=== PATIENT | female | born 1985 | race Two or more races ===

== ENCOUNTER 2016-08-05 17:54 | Emergency (ER) | payer BC ==
[~2016-08-05 17:54] MED LIST: ATIVAN1 MG PO; NO HOME MEDS; ZOLOFT100 MG PO
[2016-08-05] MEDS ORDERED: WELLBUTRIN SR150 M2 PO (18:03)
[2016-08-05] MEDS ORDERED: KLONOPIN1 M1 PO (18:03)
[2016-08-05 19:21] LABS: URINE BILIRUBIN NEGATIVE (NEG); URINE BLOOD SMALL (NEG); URINE GLUCOSE (UA) NEGATIVE (NEG); URINE KETONE NEGATIVE (NEG); URINE LEUKOCYTE ESTERASE NEGATIVE (NEG); URINE NITRITE NEGATIVE (NEG); URINE PROTEIN MODERATE (NEG)
[2016-08-05 19:22] LABS: URINE APPEARANCE CLEAR; URINE COLOR YELLOW
[2016-08-05 19:28] LABS: URINE AMORPHOUS 1+; URINE EPITHELIAL CELLS 0-1 /[HPF] (0-10); URINE RBC 0-2 /[HPF] (0-5); URINE WBC 0-1 /[HPF] (0-5)
[2016-08-05 19:36] LABS: ANION GAP 14 mmol/L (0-20); BLOOD UREA NITROGEN 8 mg/dl (6-24); CALCIUM 8.3 mg/dl (8.5-10.5); CARBON DIOXIDE-VENOUS 23 mmol/L (22-32); CHLORIDE 105 mmol/l (96-110); CREATININE 0.81 mg/dl (0.50-1.10); GLUCOSE 93 mg/dL (70-110); POTASSIUM 3.9 mmol/L (3.7-5.1); SODIUM 138 mmol/L (135-145); eGFR VALUE FOR BLACK >90 mL/Min
== END 2016-08-05 20:50 ==
LOC: EDMED 17:54
PROVIDERS: Emergency Medicine
DX: R56.9 Unspecified convulsions (principal); F41.9 Anxiety disorder, unspecified; F32.9 Major depressive disorder, single episode, unspecified; Z79.899 Other long term (current) drug therapy